=== PATIENT | male | born 1990 | race Caucasian/White ===

== ENCOUNTER 2018-11-06 03:19 | Emergency (ER) | payer SELFPAY ==
[~2018-11-06] VITALS: Ht 172.7 cm; Wt 117.0 kg
[2018-11-06 03:22] VITALS: Ht 172.7 cm; Wt 117.0 kg
[2018-11-06 04:09] LABS: BASOPHIL % 1.2 % (0-2); PLATELET COUNT 231 x10^3mcL (130-400); RED CELL DISTRIBUTION WIDTH 12.9 % (11.5-14.5)
[2018-11-06 04:24] LABS: CALCIUM 9.1 mg/dL (8.5-10.1); CARBON DIOXIDE 28.9 mmol/L (21-32); CHLORIDE SERUM 106 mmol/L (98-107); CREATININE SERUM 0.8 mg/dL (0.7-1.3); GFR1 > 60 mL/min; GLUCOSE SERUM 141 mg/dL (74-106); POTASSIUM SERUM 4.1 mmol/L (3.5-5.1); SODIUM SERUM 143 mmol/L (136-145)
[2018-11-06 04:30] LABS: ALBUMIN 3.8 g/dL (3.4-5.0); ALKALINE PHOSPHATASE 95 U/L (46-116); ALT/SGPT 55 U/L (16-63); AST/SGOT 17 U/L (15-37); BILIRUBIN TOTAL 0.2 mg/dL (0.20-1.00); TOTAL PROTEIN, SERUM 7.6 g/dL (6.4-8.2)
[2018-11-06 04:46] LABS: AMPHETAMINE QUAL UR NONE DETECTED (See below)
[2018-11-06 06:58] VITALS: BP 134/72
== END 2018-11-06 07:15 | disposition home or self-care (01) ==
LOC: ED 03:19
PROVIDERS: Emergency Medicine
DX: M79.602 Pain in left arm (principal); M79.601 Pain in right arm
CPT/HCPCS: 36415